=== PATIENT | female | born 1945 | race African-American/Black ===

== ENCOUNTER 2017-02-09 23:12 | Emergency (ER) | payer OTHER ==
[~2017-02-09] VITALS: Ht 165.1 cm; Wt 113.4 kg
[~2017-02-09 23:12] MED LIST: CODE BLUE PARTICIPANT 1 EA MISC MC ONE; EPINEPHrine PFS 0.1 MG/ML SYR IVP ONE
--- NOTE | 2017-02-09 23:12 | NUR ---
PT. CHARLOTTEA TO ED BED 10
--- NOTE | 2017-02-09 23:13 | NUR ---
PATIENT BEING EVALUATED BY DR. HAMPTON. RT AND [employer] FSCM DEVELOPER AT BEDSIDE.
--- NOTE | 2017-02-09 23:14 | NUR ---
PATIENT IS A 71 Y/O FEMALE WHO PRESENTS TO THE ED C/O FULL ARREST. PER YESSICA SAXENA CALLED 911, PT WAS C/O ABD PAIN. PER [facility] PT WAS FOUND TO BE IN AGONAL BREATHING AND BEGAN COMPRESSIONS. RIGHT TIBIA IO ACCESS WAS ESTABLISHED IN THE FIELD AND 4 ROUNDS OF EPI WERE GIVEN IN THE FIELD. PT FOUND TO HAVE NO PULSE IN ER, NO RESPIRATION, BEGAN AMBU BAG AND COMPRESSIONS. PT PLACED ON MONITOR, IV ESTABLISHED TO THE LEFT HAND [address] HAMPTON AT BEDSIDE. H/O--HTN, CHOLITIS, CHOLYCYSTECOMY. Addendum: 02/10/17 at 0006 by MEDDCV PATIENT IS A 71 Y/O FEMALE WHO PRESENTS TO THE ED C/O FULL ARREST. PER YESSICA SAXENA CALLED 911, PT WAS C/O ABD PAIN. PER [facility] PT WAS FOUND TO BE IN AGONAL BREATHING AND BEGAN COMPRESSIONS. RIGHT TIBIA IO ACCESS WAS ESTABLISHED IN THE FIELD AND 4 ROUNDS OF EPI WERE GIVEN IN THE FIELD. PT FOUND TO HAVE NO PULSE IN ER, NO RESPIRATION, BEGAN AMBU BAG AND COMPRESSIONS. PT PLACED ON MONITOR, IV ESTABLISHED TO THE LEFT HAND [address] HAMPTON AT BEDSIDE. SEE CODE SHEET. H/O--HTN, CHOLITIS, CHOLYCYSTECOMY.
--- NOTE | 2017-02-09 23:26 | NUR ---
TIME OF , 2325. CALLED BY DR. HAMPTON.
--- NOTE | 2017-02-09 23:36 | NUR ---
CALLED INSPECTOR GOLF BALL TO NOTIFY OF PATIENT EXPIRATION.
--- NOTE | 2017-02-09 23:39 | NUR ---
CALLED [facility], SPOKE WITH LEODAN, POTENTIAL FOR ORGAN DONATION.
--- NOTE | 2017-02-09 23:50 | NUR ---
CALLED ENROUTE CONTROLLER BACK, STILL PENDING AN ASSIGNMENT.
--- NOTE | 2017-02-10 | NUR ---
DAUGHTER OF PATIENT ARRIVED IN ER, NOTIFIED OF PT STATUS. DR. HAMPTON AND CHIQUI CAM.
--- NOTE | 2017-02-10 01:34 | NUR ---
[facility] RETURNED CALL, SPOKE WITH GAVIN. UPDATED ON PATIENT INFO.
--- NOTE | 2017-02-10 02:37 | NUR ---
CONTACTED TRIMMING PRESS OPERATOR FOR F/U REGARDING ASSIGNMENT. RETAIL AND RESTAURANT ASSOCIATE STATED, 'WE ARE BUSY. CASE IS STILL PENDING.'
--- NOTE | 2017-02-10 03:45 | NUR ---
RUBEN FROM ENERGY INFRASTRUCTURE ENGINEER CALLED BACK. UPDATED ON PT INFO.
--- NOTE | 2017-02-10 04:10 | NUR ---
RUBEN HOLLINGSWORTH FROM PHARMACOEPIDEMIOLOGIST RELEASED THE BODY. .
--- NOTE | 2017-02-10 04:15 | NUR ---
CALLED ANGELICA REGARDING CHOICE OF MORTUARY. LEFT VOICEMAIL. WILL CALL FOR F/U.
--- NOTE | 2017-02-10 04:20 | NUR ---
CALLED PATIENT BACK REGARDING CHOICE OF MORTUARY. DAUGHTER DOES NOT WISH TO SEND TO [facility] NOT WANTING TO PAY THE DAILY FEE.
--- NOTE | 2017-02-10 05:16 | NUR ---
TALKED TO EMILIANO DAUGHTER TO VERIFY THE PLAN FOR THE MORTUARY, PER EMILIANO SHE WILL CALL ME BACK AGAIN REGARDING THE PLAN
--- NOTE | 2017-02-10 05:33 | NUR ---
TALKED TO EMILIANO DAUGHTER JOVANY FRIEND MR HOLLINGSWORTH WILL WOOD FLOOR LAYER THE BODY AND HIS PHONE NUMBER IS [phone], EXPLAINED TO EMILIANO THAT I WILL STILL TRY TO GET IN TOUCH WITH MR GUEVARA, EXPLAINED THAT THERE IS POSSIBILITY THAT MR HOLLINGSWORTH WILL NOT BE ABLE TO WOOD FLOOR LAYER THE BODY BECAUSE ITS NOT CORONERS CASE, SHE ALSO CLAIMED THAT WHAT IF I DONT WANT TO CLAIM MY MOTHERS BODY WHAT WILL YOU DO, EXPLAINED WILL CALL HER BACK AGAIN, CALL PLACE TO MR HOLLINGSWORTH, LEAVE MESSAGE.
--- NOTE | 2017-02-10 05:57 | NUR ---
TALKED ALSO TO DIRECTOR AND RECYCLE WORKER REGARDING THE SITUATION, PER DIRECTOR NEED TO SEND BODY TO MORTUARY.
--- NOTE | 2017-02-10 05:58 | NUR ---
CALL PLACE TO EMILIANO FIELDS AWARE WILL SEND THE BODY TO [facility].
--- NOTE | 2017-02-10 05:59 | NUR ---
CALL PLACE TO [facility] LEAVE MESSAGE TO MAINTENANCE CONTROLLER BODY, WILL ENDORSE.
--- NOTE | 2017-02-10 06:05 | NUR ---
PATIENT MOVED TO ROOM 118, CONFIRMED HOLDING.
--- NOTE | 2017-02-10 07:02 | NUR ---
TALKED TO QUINTEN RAMOS FROM [facility], PER QUINTEN THEY CANNT ACCEPT THE PT WITHOUT AUTHORIZATION FROM THE FAMILY, WILL ENDORSE
--- NOTE | 2017-02-10 07:31 | NUR ---
CALL PLACE TO [facility] ALCANTAR SPOKE TO QUINTEN RAMOS MADE AWARE THAT [facility] WILL BE RESPONSIBLE FOR THE WINDER CONTORT OPERATOR, PER RICHARD FAX FACE SHEET TO [phone], ENDORSE TO JAQUI
--- NOTE | 2017-02-10 08:04 | NUR ---
RECEIVED REPORT FROM OFF GOING CHARGE CHIQUI, BODY RELEASED BY [facility], AWAITING MORTUARY EXTERNAL GRINDER REMAINS IN ROOM 118.
--- NOTE | 2017-02-10 09:23 | NUR ---
Spoke with Reinier Kenny for an ETA which she stated was no later than 1000 today.
[2017-02-10 10:14] VITALS: BP 0/0
--- NOTE | 2017-02-10 10:15 | NUR ---
patient remains picked up by [facility].
== END 2017-02-09 23:26 | disposition expired ==
LOC: MED 23:12
DX: I46.9 Cardiac arrest, cause unspecified (principal); I10 Essential (primary) hypertension; Z90.89 Acquired absence of other organs
CPT/HCPCS: 31500; 99285; J0171